=== PATIENT | female | born 1965 | race Caucasian/White ===

== ENCOUNTER 2018-04-22 13:05 | Emergency (ER) | payer MEDICARE ==
[2018-04-22] MEDS ORDERED: FLE100 FT (13:53)
[2018-04-22] MEDS ORDERED: ASPI-1471 PO (13:53)
[2018-04-22] MEDS ORDERED: DILT-102 PO (13:53)
[2018-04-22] MEDS ORDERED: fentaNYL CITR 100 MCG/2 ML AMP IVP ONE (14:30)
[2018-04-22] MEDS ORDERED: ONDANSETRON 4 MG/2 ML VIAL IVP ONE ×2 (14:30→18:10)
--- NOTE | 2018-04-22 15:11 | EKG ---
FACILITY: [facility] [place] PATIENT NAME: SCARLETT PEARL : [id number] MR: [id number] V: [id number] EXAM DATE: ORDERING PHYSICIAN: KELLI PAYNE TECHNOLOGIST: Test Reason : Blood Pressure : / mmHG Vent. Rate : 098 BPM Atrial Rate : 098 BPM P-R Int : 140 ms QRS Dur : 088 ms QT Int : 344 ms P-R-T Axes : 055 -02 041 degrees QTc Int : 439 ms Normal sinus rhythm Normal ECG No previous ECGs available Confirmed by HIPOLITO MAY ([id number]) on 04/23/2018 6:07:32 AM Referred By: Confirmed By:HIPOLITO MAY
--- NOTE | 2018-04-22 15:16 | ER Report ---
History and Physical Time Seen By MD: 13:40 Hx. of Stated Complaint: WOKE UP WITH RIGHT SHOULDER PAIN THAT RADIATES TO ELBOW. BRUISING NOTED TO RIGHT FOREARM AND SWELLING. DENIES INJURY (KELLI PAYNE MD) HPI/ROS CHIEF COMPLAINT: Right Upper extremity pain HISTORY OF PRESENT ILLNESS: This is a 52-year-old female with past medical history significant for atrial fibrillation and flutter status post ablation 2 years ago although still has episodes of A. fib flutter and SVT. She has a history of COPD and continues to smoke is on 3 L nasal cannula. She states that she woke with right arm pain as well as right hand numbness and bruising to the right forearm and decreased range of motion secondary to pain. She denies any traumatic history she is unsure if she slept on the arm last evening. No prior history of DVT or PE. Patient denies chest pain or shortness of breath (KELLI PAYNE MD) Allergies: Coded Allergies: hydrocodone (Verified Allergy, Mild, HIVES, 04/22/18) Home Meds Active Scripts Ondansetron 4 Mg Odt (ONDANSETRON 4 MG ODT) 4 Mg Tab.rapdis, 4 MG PO Q6H PRN for NAUSEA/VOMITING, #20 TAB 0 Refills Prov:VENKAT VAZQUEZ MD 04/22/18 Oxycodone Hcl/Acetaminophen (OXYCODONE-ACETAMINOPHEN 5-325) 1 Each Tablet, 1 EACH PO Q4-6H PRN for PAIN, #15 TAB Prov:CHRIST LEDESMA V DO 04/22/18 Reported Medications Diltiazem Hcl (CARTIA XT) 120 Mg Cap.er.24h, 120 MG PO 04/22/18 Flecainide Acetate (FLECAINIDE ACETATE) 100 Mg Tab, 100 MG FT BID, TAB 04/22/18 Aspirin (ASPIR 81) 81 Mg Tablet.dr, 81 MG PO QDAY, TAB 04/22/18 Past Medical/Surgical History History of paroxysmal atrial fib flutter status post ablation but still deficits, COPD, smoker (KELLI PAYNE MD) Constitutional Vital Sign - Last 24 Hours 04/22/18 04/22/18 04/22/18 04/22/18 13:20 14:35 14:43 15:35 Temp 98.4 Pulse 111 ? Resp 24 B/P (MAP) 138/88 139/82 (101) Pulse Ox 90 O2 Delivery Nasal Cannula 04/22/18 04/22/18 04/22/18 04/22/18 15:40 15:55 15:57 16:00 Pulse ??? 99 B/P (MAP) 156/97 (116) 143/99 (114) Pulse Ox 89 04/22/18 04/22/18 04/22/18 04/22/18 16:05 16:10 16:25 16:30 Pulse 96 107 Resp 17 B/P (MAP) 143/102 (116) 112/85 (94) Pulse Ox 91 91 04/22/18 04/22/18 04/22/18 04/22/18 16:39 16:40 16:42 16:45 Pulse 107 B/P (MAP) ???/??? (1665) 162/107 (125) 170/98 (122) Pulse Ox 94 (LAURORA,CHRIST V DO) Physical Exam General Appearance: The patient is alert, has no immediate need for airway protection and no current signs of toxicity. [ ] Eyes: Pupils equal and round no injection. Respiratory: Chest is non tender, lungs are clear to auscultation. Cardiac: regular rate and rhythm Gastrointestinal: Abdomen is soft and non tender, no masses, bowel sounds normal. Musculoskeletal: Neck: Neck is supple and non tender. Extremities right upper extremities noted for decreased range of motion at the shoulder. Patient has some bruising to her axial fold as well as of the forearm circumferentially and some purplish hue to the hand. Patient has numbness to the hand she does have a palpable radial pulse although it does appear diminished compared to the right. Examination of the Right hand reveals no acute deformity. The patient is able to give a thumbs up sign, is able to make an okay sign, and is able to AB duct the fingers. Sensation is intact decreased compared to the left hand over the dorsal 1st web space, the volar aspect of the 2nd finger, and the volar aspect of the 5th finger. Capillary refill is sluggish (KELLI PAYNE MD) Medical Decision Making ED Course/Re-evaluation ED Course Patient with atraumatic discomfort to the right upper extremity with evidence of bruising and swelling. History of paroxysmal atrial fibrillation. Concerned about venous thromboembolic disease obtain both arterial and venous Dopplers of the right upper extremity. I will x-ray his shoulder and right forearm. I'll check CBC CMP d-dimer. Although the patient is tachycardic and oxygen requiring she denies any dyspnea or shortness of breath. Place an IV adequate for CT angiogram for PE if necessary. Reexam by another provider: patient seems to have a deformity to the shoulder shelf and xr does reveal an anterior inferior shoulder dislocation. Sensation is intact over the right deltoid. Decision to Disposition Date: Apr 22, 2018 Decision to Disposition Time: 19:00 (KELLI PAYNE MD) Clinical Indication for ER IV: IV Access ED Course 04/22/2018 4:42:58 pm Procedure shoulder reduction time out prior to procedure. total of propofol 200mg, ativan 1mg and ketamine 100mg for total sedation. After multiple attempts shoulder failed to reduce. Orthopedics, Dr. Syed was notifed and states he will be in to see patient. 04/22/2018 5:15:26 pm Performed sedation for doctor Laila, orthopedics. Respiratory in room monitoring airway. Propofol 130mg and Ketamine 50mg used for sedation. shoulder was reduced by Dr. syed. Post reduction xrays reviewed by Dr. Syed. Dr. Syed did not feel US was needed unless swelling fails to reduce in next 24 hours. Swelling is suggestive of the extensive dislocation time. He would like to see pt in office in 2-3 weeks and she is to remain in sling or immobilizer 04/22/2018 5:38:01 pm PT is awake and asking for something to drink. Arm feels improved but not completely pain free "i still have some tingling in my pinky: Pt states she had celebrex for her back and she used to take percocet as well for her back when severe.Pt denies allergy to percocet dispite the vicodin. allergy. I suspect pt could have nerve damage/ligament damage from the length of time shoulder had been out of place>12 hours. Shoulder is in place currently and I am hopeful that symptoms will improve however I did let the patient know it is possible that she could have permenant damage ot her nerve. Decision to Disposition Date: Apr 22, 2018 Decision to Disposition Time: 17:39 (CHRIST LEDESMA DO) Depart Departure Latest Vital Signs Vital Signs Date Time Temp Pulse Resp B/P (MAP) Pulse Ox O2 Delivery O2 Flow Rate FiO2 04/22/18 16:45 170/98 (122) 04/22/18 16:40 107 94 04/22/18 16:25 17 04/22/18 13:20 98.4 Nasal Cannula (CHRIST LEDESMA DO) Impression: Primary Impression: Shoulder dislocation Condition: Improved Disposition: HOME OR SELF-CARE Referrals: ARLEEN SYED MD 2 Weeks New Scripts Ondansetron 4 Mg Odt (ONDANSETRON 4 MG ODT) 4 Mg Tab.rapdis 4 MG PO Q6H PRN for NAUSEA/VOMITING, #20 TAB 0 Refills Prov: VENKAT VAZQUEZ MD 04/22/18 Oxycodone Hcl/Acetaminophen (OXYCODONE-ACETAMINOPHEN 5-325) 1 Each Tablet 1 EACH PO Q4-6H PRN for PAIN, #15 TAB Prov: CHRIST LEDESMA DO 04/22/18 Patient Instructions: Shoulder Dislocation (ED) Additional Instructions: Your shoulder was dislocated. Dr. Syed, orthopedics, was able to reduce your shoulder into place. When you dislocate your shoulder you can injure the ligaments. You will need to keep your arm in a sling. Do not reach over your head. Follow up with orthopedics, Dr. Syed. Call tomorrow to make an appointment for 2-3 weeks from now. Percocet 1 every 6 hours as needed for severe pain. If your arm pain worsens or swelling does not improve in the next [address] Syed's office for immediate follow up or return to the emergency room. Problem Qualifiers Primary Impression: Shoulder dislocation Encounter type: initial encounter Laterality: right Qualified Codes: S43.004A - Unspecified dislocation of right shoulder joint, initial encounter KELLI PAYNE MD Apr 22, 2018 15:16 CHRIST LEDESMA DO Apr 22, 2018 16:45
[2018-04-22] MEDS ORDERED: HYDROMORPHONE HCL 1 MG/ML SYRINGE IVP ONE (15:30)
[2018-04-22] MEDS ORDERED: NS(*) 0.9% 1000 ML BAG 1,000 ML IV ONE (15:45)
[2018-04-22] MEDS ORDERED: KETAMINE HCL-NS 50 MG/5 ML SYR IVP ONE ×5 (16:00→17:30)
[2018-04-22] MEDS ORDERED: PROPOFOL EMUL 10MG/ML 20 ML VL IV ONE ×2 (16:00→16:40)
--- NOTE | 2018-04-22 16:07 | RADIOLOGY IMAGING REPORT ---
FACILITY: [facility] [place] PATIENT NAME: Faviola Deluca : 1965 MR: [id number] V: [id number] EXAM DATE: ORDERING PHYSICIAN: KELLI PAYNE TECHNOLOGIST: Location: [facility] Patient: Faviola Deluca : 1965 Visit/Account:[id number] Date of Sevice: 04/22/2018 Exam type: FOREARM RIGHT History: pain Comparison: Right shoulder performed today. Findings: Two views of the right forearm demonstrate no evidence of acute fracture or dislocation. No radiopaq ue soft tissue foreign body seen IMPRESSION: 1. No evidence of acute fracture-dislocation involving the right forearm Report Dictated By: Emily Odell MD at 04/22/2018 4:01 PM Report E-Signed By: Emily Odell MD at 04/22/2018 4:02 PM WSN:[email or web address]
--- NOTE | 2018-04-22 16:08 | RADIOLOGY IMAGING REPORT ---
FACILITY: [facility] PATIENT NAME: Faviola Deluca : 1965 MR: [id number] V: [id number] EXAM DATE: ORDERING PHYSICIAN: KELLI PAYNE TECHNOLOGIST: Location: [facility] Patient: Faviola Deluca : 1965 Visit/Account:[id number] Date of Sevice: 04/22/2018 Exam type: SHOULDER MIN 2 VIEWS RIGHT History: pain Comparison: None. Findings: There is anterior dislocation of the right humeral head with respect to the glenoid. No definite fra cture is seen although post reduction study recommended IMPRESSION: 1. Anterior dislocation of the right shoulder Report Dictated By: Emily Odell MD at 04/22/2018 4:02 PM Report E-Signed By: Emily Odell MD at 04/22/2018 4:03 PM WSN:[email or web address]
[2018-04-22] MEDS ORDERED: LORazepam 2 MG/ML VIAL ONE (16:32)
--- NOTE | 2018-04-22 17:33 | RADIOLOGY IMAGING REPORT ---
FACILITY: [facility] [place] PATIENT NAME: Faviola Deluca : 1965 MR: [id number] V: [id number] EXAM DATE: ORDERING PHYSICIAN: CHRIST LEDESMA TECHNOLOGIST: Location: [facility] Patient: Faviola Deluca : 1965 Visit/Account:[id number] Date of Sevice: 04/22/2018 INDICATION: post reduction. DATE: 04/22/2018 5:28 PM. TECHNIQUE: SHOULDER MIN 2 VIEWS RIGHT COMPARISON: Prereduction radiographs FINDINGS: Successful glenohumeral reduction. IMPRESSION: Successful reduction. Report Dictated By: Kamilah Childers MD at 04/22/2018 5:28 PM Report E-Signed By: Kamilah Childers MD at 04/22/2018 5:29 PM WSN:[id number]
[2018-04-22] MEDS ORDERED: OXYC-373 PO (17:40)
[2018-04-22] MEDS ORDERED: oxyCODONE/ACETAMIN 5/325MG TH 2 TAB/BOTTLE PO ONE (17:50)
[2018-04-22] MEDS ORDERED: ONDA4TAB9 PO (18:43)
--- NOTE | 2018-04-22 19:24 | CONSULTATION ---
EVENT DATE: April 22, 2018 The patient was seen at the [facility] [place] Emergency Department. CHIEF COMPLAINT Right arm dislocation. HISTORY This patient is a 52-year-old female who presented to the Emergency Department today for evaluation of right shoulder pain and irritation and swelling in her arm. She says she is unable to move it. She states she just woke up that way. She does not recall any one particular injury, but had pain and irritation, could not move it, and had some swelling associated with it, so therefore then finally came into the Emergency Department in the afternoon and was found to have a dislocation associated with the shoulder. The Emergency Department tried twice to get it in, unfortunately could not get it in, so Orthopedics was consulted for further management and evaluation, and so I came in to see the patient. PAST MEDICAL HISTORY Otherwise unremarkable, the patient stating she does not really have any major medical problems. ALLERGIES PENICILLIN and HYDROCODONE, with which she has hives. SOCIAL HISTORY The patient denies any major substance abuse or smoking. The patient just recently moved to the [facility]. PAST FAMILY MEDICAL HISTORY Otherwise noncontributory. MEDICATIONS Please see the hospital chart for a full list of medications. PHYSICAL EXAMINATION GENERAL: The patient is seen in the ER bay in no acute distress, comfortable and cooperative, answered all questions appropriately. She is able to verbalize commands. She does have a little bit of pain in the shoulder, though. HEENT: Normocephalic. Extraocular movements intact. NECK: Supple. Trachea midline. CHEST: Rises and falls symmetrically. She has no labored breathing or audible wheezing. NEUROLOGIC: She is able to follow and understand verbal commands. EXTREMITIES: Focused exam of the right shoulder reveals she does move it in a kind of straightened and externally rotated position. She is a little bit swollen within the arm and around the biceps area. She otherwise had some tenderness in the forearm, but no signs of palpable crepitus. She was able to wiggle her fingers. She had light touch sensation in the fingers and otherwise grossly neurovascularly intact except that I cannot test her shoulder girdle muscles secondarily due to the fact that she is dislocated. Her contralateral extremity is otherwise unremarkable. She is able to wiggle her toes in the bay. LABORATORY AND RADIOLOGY X-rays include two initial views which show an anterior-inferior dislocation with a small Hill-Sachs deformity. Otherwise, there are no osseous abnormalities. ASSESSMENT AND PLAN This patient is a 52-year-old female with a right shoulder dislocation. She wanted to go ahead with one more attempt at a closed reduction with myself prior to going to any operative room aspects, and so therefore we set her up for the procedure. PROCEDURE The patient was given propofol by the emergency department doctor, and she got into a relaxed state. I then did an externally rotated movement with longitudinal traction and countertraction with a gentle push up into the axilla to move the humeral head. Once I did this, I was able to relocate the humeral head. It popped back into place and was stable to majority of the motions that I did afterwards. We then took images including a Grashey and an axillary view which confirmed relocation of the humerus back into the glenohumeral joint. The patient will remain in a sling. She will be discharged from the Emergency Department, and then we will follow up with her in a couple weeks' time in my clinic. She is not to do any adduction or abduction/external rotation type movements. MARITAZ
== END 2018-04-22 19:10 | disposition home or self-care (01) ==
LOC: ER 13:28 → CANBEDREQ 16:28 → ER 19:10
DX: S43.004A Unspecified dislocation of right shoulder joint, initial encounter (principal)
CPT/HCPCS: 23650; 73030; 73090; 93005; 96361; 96374; 96375; 96376; 99156; 99285; A4565; J1170; J2060; J2405; J2704; J3010; J3490; J7030; 99151; 99152

== ENCOUNTER → 2018-06-12 | Outpatient (CLI) | payer MEDICARE ==
[~2018-06-12] MED LIST: ASPI-1471 PO; DILT-102 PO; FLE100 FT; ONDA4TAB9 PO; OXYC-373 PO
== END ==
LOC: US 00:49
PROVIDERS: ATTEND Internal Medicine Cardiovascular Disease
DX: I51.7 Cardiomegaly (principal)
CPT/HCPCS: 93306

== ENCOUNTER 2018-07-01 00:46 | Day surgery (SDC) | payer MEDICARE ==
[~2018-07-01] VITALS: Ht 167.6 cm; Wt 110.2 kg
[~2018-07-01 00:46] MED LIST changes: +ALB6.7R INH; +CHL10 PO; +CYCL-277 PO; +ESOM40CA42 PO; +FLUT1BLS3 IH; +FURO20TA19 PO; +GABAPENTIN 400 MG PO; +IBUP-1687 PO; +MAGN400C PO; +ONDA4TAB97 PO; +POTA99TA6 PO; +QUET400T11 PO; +TRAM100T8 PO; +TRINTELLIX PO
[2018-07-01] MEDS ORDERED: fentaNYL CITR 250 MCG/5 ML AMP ONE ×2 (07:08→10:36)
[2018-07-01] MEDS ORDERED: LIDOCAINE 2% IV 100 MG/5ML SYR ONE ×2 (07:09→09:27)
[2018-07-01] MEDS ORDERED: PROPOFOL EMUL(*) 10MG/ML 20 ML 0 ML ONE (07:10)
[2018-07-01] MEDS: FAMOTIDINE 20 MG TAB PO ONE ×2 (07:15→07:43)
[2018-07-01] MEDS ORDERED: LIDOCAINE/SOD BICARB 8.4% SYR ID ONE (07:15)
[2018-07-01] MEDS ORDERED: CELECOXIB 200 MG CAP PO ONE (07:15)
[2018-07-01] MEDS ORDERED: MIDAZOLAM 2 MG/2 ML VIAL IVP PRN (07:15)
[2018-07-01] MEDS ORDERED: ceFAZolin(*) 2GM/D5W 50ML 50 ML IVPB ONE (07:15)
[2018-07-01] MEDS ORDERED: NORMOSOL R SOLN(*) 1000 ML BAG 1,000 ML IV PRN (07:15)
[2018-07-01] MEDS ORDERED: ROPIVACAINE 0.2% 20 ML VIAL ONE (07:28)
[2018-07-01 08:01] VITALS: BP 112/76
[2018-07-01] MEDS ORDERED: ALBUTEROL/IPRATROPIUM 3 ML NEB ONE (08:46)
[2018-07-01] MEDS ORDERED: PROPOFOL EMUL(*) 10MG/ML 20 ML 20 ML ONE (09:26)
[2018-07-01] MEDS ORDERED: DEXAMETHASONE SOD PHOS 10MG/ML ONE (09:26)
[2018-07-01] MEDS ORDERED: ONDANSETRON 4 MG/2 ML VIAL ONE ×2 (09:26→10:15)
[2018-07-01] MEDS ORDERED: fentaNYL CITR 100 MCG/2 ML AMP ONE ×4 (09:26→13:00)
[2018-07-01] MEDS ORDERED: KETAMINE HCL 200 MG/20 ML MDV ONE ×2 (10:07→11:06)
[2018-07-01] MEDS ORDERED: DEXAMETHASONE SOD 4 MG/ML VIAL ONE (10:15)
[2018-07-01] MEDS ORDERED: LACTATED RINGER 3000 ML BAG IR ONE (12:02)
[2018-07-01] MEDS ORDERED: OXYC-865 PO (13:03)
[2018-07-01] MEDS ORDERED: HYDROmorphone HCL 2 MG/ML SDV ONE (13:21)
--- NOTE | 2018-07-01 13:23 | OPERATIVE REPORT 1 ---
EVENT DATE: July 01, 2018 SURGEON: Sreedhar Ulloa MD ANESTHESIOLOGIST: Nicolas Cortez MD ANESTHESIA: General. CHAPTER RELATIONS ADMINISTRATOR: Carlitos Jenkins PA-C PREOPERATIVE DIAGNOSIS Right shoulder large rotator cuff tear with bicipital labral fraying, impingement and irritation throughout the joint. POSTOPERATIVE DIAGNOSIS Right shoulder large rotator cuff tear with bicipital labral fraying, impingement and irritation throughout the joint. PROCEDURE PERFORMED Right shoulder repair of massive rotator cuff repair as well as biceps tenotomy, labral debridement, subacromial decompression and extensive debridement throughout the joint. FINDINGS Patient had a torn rotator cuff but was amenable for repair. ESTIMATED BLOOD LOSS Minimal. DRAINS None. COMPLICATIONS None. IMPLANTS Two 2.9 JuggerKnot made by ADINCON and Cayanne 5.5 lateral row equivalent anchor. SPECIMENS None. TOURNIQUET TIME Not applicable. INDICATIONS AND HISTORY This patient is a 53-year-old female who presented to my clinic for evaluation of right shoulder pain and irritation going on for some time. She continued to have pain and irritation despite conservative management and MRI revealed that she had a large rotator cuff tear so, therefore, she wanted to go ahead with repair. We told her with the thinning of the rotator cuff and her retraction there is no guarantee that the repair would hold but this was the best thing we had for her so we went over the risks and benefits associated with surgery and informed consent was obtained at the last clinic visit. We made her no guarantees that it gives her empiric relief and informed consent was obtained at the last clinic visit. DESCRIPTION OF PROCEDURE The patient was brought into the operating room. She and the procedure were both verified. She was placed supine on the operating table and induced intubated by anesthesia. She was then turned to the lateral decubitus position with the right arm towards the ceiling and the right arm was prepped and draped in the usual fashion. A time-out was observed, verifying the correct patient and procedure. The standard incisions were made in the anterior and posterior aspects of the shoulder. The scope was inserted posteriorly into the intra-articular portion of the joint. I was then able to establish an anterior portal and utilize the suction shaver in order to debride a lot of the irritation and fraying throughout the joint and the synovitis and do an extensive debridement throughout the joint itself. I then debrided the labrum and using electrocautery I was able to cut the biceps tendon, which was frayed and irritated, and allowed the labrum to fall back to fall back to a more natural position. This was then followed by freeing up some adhesions of the rotator cuff to the labrum itself from the tear. I was then able to debride the rest of the inside of the joint and do a little bit of a chondroplasty and do the extensive debridement throughout the joint a little bit better with the biceps out of the way. We then looked at the subscap. There are no signs of obvious detachment associated with this but there was an obvious detachment of the supraspinatus and most of the infraspinatus. I then turned attention to the subacromial space, where I did a complete bursectomy and a small subacromial decompression. I was then able to debride the rotator cuff and then debride the footprint in order to make it amendable for repair. I then put in two percutaneous 2.9 JuggerKnot anchors, one anteriorly and one posteriorly, in the tear and then was able to establish a lateral portal. I then placed the sutures using a scorpion needle passer from anterior to posterior in a horizontal mattress type fashion. I then tied them in a posterior to anterior fashion and then took the two strands from the middle two anchors each and then one strand from both the posterior and anterior anchor and then tied those back into a 5.5 Cayanne after putting the awl into the lateral aspect of the humerus. This then tightened the rotator cuff down and did not leave any signs of dog ears and looked good with adduction and internal/external rotation so I cut all sutures and then made sure there were no further signs or issues associated with the subacromial space. I removed all instrumentation, drained the fluid out of the shoulder and then closed the portal sites with 4-0 Monocryl. This was then followed by anesthetization with ropivacaine and dressing with Steri-Strips, gauze, 4x4s and a soft dressing. She was put in an abduction sling, awakened, extubated and transferred to PACU in stable condition. MARITZA
[2018-07-01 14:45] VITALS: BP 131/79
[2018-07-01 15:00] VITALS: BP 125/77
[2018-07-01 15:30] VITALS: BP 134/80
[2018-07-01] MEDS ORDERED: ACETAMINOPHEN(*)1000 MG/100 ML 100 ML IVPB ONE (15:37)
--- NOTE | 2018-07-01 15:56 | NUR ---
1440 PT TRANSFERRED TO ISOLATION ROOM IN PACU AT TIME OF TRANSFER TO PHASE 2 CHARTING, VSS, PAIN NOW 9/10, MOTHER DIANE, AT BEDSIDE, MOVED TO 6L NC, DROPS OCCASIONALLY 1500 VSS, PAIN STILL 9/10, MOSTLY HAND, TRIED READJUSTING SLING AND SUPPORT PILLOW, NO RELIEF, DECLINED FOOD/DRINK 1530 PT CONSISTENTLY AT 90% ON 6L NC, DROPPED TO 5L [address] AGUILAR PER PT'S REQUEST FOR TYLENOL FOR SOME PAIN RELIEF, VORB GIVEN 1540 1G OFRIMEV GIVEN IV 1548 PT CONSISTENTLY 90-91% ON 5L, DOWN TO 4L NC, MOTHER AND DAUGHTER, PATTIE, AT BEDSIDE
[2018-07-01 16:09] VITALS: BP 133/79
[2018-07-01 16:11] VITALS: BP 131/83
--- NOTE | 2018-07-01 17:00 | NUR ---
1609 PT MAINTAINED SPO2>90%FOR 15 MINUTES, ORTHOSTATICS STARTED, STABLE, PT UP TO RESTROOM, ABLE TO VOID WITHOUT DIFFICULTY 1620 DRESSED WITH ASSISTANCE, EDUCATED PT AND DAUGHTER ON SLING USE 1630 D/C INFO COVERED WITH DAUGHTER AND PT, ALL QUESTIONS ANSWERED 1640 IV OUT, PRESSURE DRESSING APPLIED, PT BLED THROUGH FIRST DRESSING, CLEANED, REAPPLIED WITH 2X GAUZE, INSTRUCTED TO LEAVE IN PLACE 30MIN 1645 PT OUT TO CAR VIA WC ON 4L NC VIA OWN CONCENTRATOR. PT VERBALIZED UNDERSTANDING TO STAY ON 4L FOR 24 HRS AND CHECK SPO2 REGULARLY. ALSO UNDERSTANDS NEED TO SLEEP WITH HOB ELEVATED, MONITOR TOTAL APAP INTAKE, AND NOT TO TAKE MORE THAN DIRECTED PERCOCET D/T RESP EFFECTS. DAUGHTER WILL STAY WITH PT TONIGHT AND TAKE RESPONSIBILITY FOR HER CARE. SELF TRANSFERRED TO VEHICLE OUTSIDE OF ADMITTING ENTRANCE WITHOUT INCIDENT, ALL BELONGINGS WITH PT.
== END 2018-07-01 14:30 | disposition home or self-care (01) ==
LOC: OR 00:46
PROVIDERS: ATTEND Orthopaedic Surgery
DX: M75.101 Unspecified rotator cuff tear or rupture of right shoulder, not specified as traumatic (principal); M75.41 Impingement syndrome of right shoulder; I48.2 Chronic atrial fibrillation; J44.9 Chronic obstructive pulmonary disease, unspecified
CPT/HCPCS: 29826; 29827; 94640; A4565; A9270; C1713; J0131; J1100; J1170; J2001; J2405; J2704; J2795; J3010; J3490; J7620; J0690